=== PATIENT | male | born 1965 | race Caucasian/White ===

== ENCOUNTER → 2018-01-30 08:04 | Outpatient (CLI) | payer OTHER, MEDICAID, SELFPAY ==
--- NOTE | 2018-02-01 16:48 | PM.PFT.1 ---
Pulmonary Function Test Referral & Results Date Patient Seen: 01/30/18 Requesting provider: Ross Villalpando Results: The spirometry demonstrates an FVC of 4.51 L which is 87% of predicted. The FEV1 was measured at 3.56 L which is 89% of predicted. The FEV1/FVC ratio was 79 which is 102% of predicted. Following the administration of bronchodilator there was a 35% improvement in FEF 25-75% but only a 7% improvement in FEV1. Lung volumes show an SVC of 4.64 L which is 92% of predicted. The diffusing capacity was measured at 34.21 which is 101% of predicted. The maximum voluntary ventilation was normal. Interpretation: This study demonstrates perhaps very mild obstructive lung disease with some limited evidence of benefit following bronchodilator, particularly small airway flow based on improvement in FEF 25-75%
== END ==
PROVIDERS: Visit Provider Internal Medicine Critical Care Medicine
DX: R06.09 Other forms of dyspnea (principal)
CPT/HCPCS: 94010; 94060; 94726; 94729

== ENCOUNTER → 2018-06-15 08:16 | Outpatient (CLI) | payer OTHER, MEDICAID, SELFPAY ==
--- NOTE | 2018-06-15 | DI.RAD.S_ITS ---
PROCEDURE: XR CHEST 2V INDICATIONS: DYSPNEA, COUGH TECHNIQUE: 2 views of the chest were acquired. COMPARISON: Outside Facility, RG, CT PET SKULL BASE TO MID THIGH, 07/04/2013, 13:00. Outside Facility, RG, CT THORAX W/O CONTRAST, 11/12/2015, 7:22. FINDINGS: Surgical changes and devices: A bent surgical screws is projected over proximal right humeral head. Lungs and pleura: No pleural effusions or pneumothorax. Lungs are clear, aside from 11 mm right basilar nodular opacity which is unchanged dating back to 07/04/2013 PET scan. Mediastinum: Mediastinal contours are normal. Heart size is normal. Bones and chest wall: No suspicious bony abnormalities. Soft tissues appear unremarkable. IMPRESSION: 1. Stable appearance of right basilar nodular opacity. 2. No source for cough identified. Dictated by: Wesley Pollack A Interpreted: Kim Thapa MD on 06/15/2018 at 10:06 Approved by: Kim Thapa MD, PhD on 06/15/2018 at 11:00
== END ==
PROVIDERS: Visit Provider Internal Medicine Critical Care Medicine
DX: R05 Cough (principal); R06.00 Dyspnea, unspecified
CPT/HCPCS: 71046

== ENCOUNTER → 2021-06-18 07:26 | Outpatient (CLI) | payer OTHER, MEDICAID, SELFPAY ==
--- NOTE | 2021-06-18 08:19 | DI.CT.S_ITS ---
PROCEDURE: CT SINUS SCREEN WO CON INDICATIONS: Chronic pansinusitis TECHNIQUE: Noncontrast 3.0 mm axial images acquired from the frontal sinuses to the mid-sella, with coronal and sagittal reformats. For radiation dose reduction, the following was used: automated exposure control, adjustment of mA and/or kV according to patient size. COMPARISON: None. FINDINGS: Image quality: Excellent. Maxillary Sinuses: Moderate mucosal thickening is seen within the left maxillary sinus and there is mild mucosal thickening within right maxillary sinus. Polypoid masses can be seen along the medial aspects of both maxillary sinuses. There is demineralization of the medial parrish of the maxillary sinuses. Ethmoid Air Cells: Moderate mucosal thickening can be seen within the ethmoid air cells. Areas of bony demineralization can be seen. Sphenoid Sinuses: No bony remodeling or destruction. Mild mucosal thickening is seen within the sphenoid sinuses. Frontal Sinuses: There is moderate mucosal thickening seen involving the inferior medial right frontal sinus and mild mucosal thickening involving the inferomedial left frontal sinus. Ostiomeatal Complexes: The ostiomeatal complexes are occluded by soft tissue, with polypoid masses. The ostiomeatal complexes are demineralized. Miscellaneous: Visualized intra-orbital contents are normal. No augustine bullosa or paradoxical turbinate curvature. Presumed nasal polyps can be seen. No significant nasal septal deviation is seen. No abnormal fluid is seen within the mastoid air cells. IMPRESSION: Widespread paranasal sinus disease is seen, with areas of bony demineralization, which are consistent with chronic sinusitis. The ostiomeatal complexes are occluded and demineralized. Polypoid masses can be seen involving the nasal cavity, the ostiomeatal complexes, and the medial parrish of the maxillary sinuses, which are attributed to polyp disease. Please correlate with known patient history and physical examination findings. Dictated by: Sean Cisneros M.D. on 06/18/2021 at 8:53 Approved by: Sean Cisneros M.D. on 06/18/2021 at 8:56
== END ==
PROVIDERS: Referring Provider Otolaryngology; Visit Provider Otolaryngology
DX: J32.4 Chronic pansinusitis (principal); J33.8 Other polyp of sinus
CPT/HCPCS: 70486